=== PATIENT | male | born 1990 | race Caucasian/White ===

== ENCOUNTER 2020-04-13 14:13 | Emergency (ER) | payer OTHER ==
[~2020-04-13] VITALS: Ht 180.3 cm; Wt 83.0 kg
[2020-04-13 14:26] VITALS: BP 128/76; Ht 180.3 cm; Wt 83.0 kg
== END 2020-04-13 16:01 | disposition home or self-care (01) ==
LOC: ED 14:13
DX: S09.90XA Unspecified injury of head, initial encounter (principal); Z98.890 Other specified postprocedural states; W20.8XXA Other cause of strike by thrown, projected or falling object, initial encounter; Y93.89 Activity, other specified; Y92.89 Other specified places as the place of occurrence of the external cause; Y99.8 Other external cause status